=== PATIENT | male | born 1975 | race Caucasian/White ===

== ENCOUNTER 2018-09-09 03:20 | Emergency (ER) | payer OTHER ==
[~2018-09-09] VITALS: Ht 165.1 cm; Wt 76.8 kg
[2018-09-09 03:23] VITALS: BP 140/85
--- NOTE | 2018-09-09 03:23 | NUR ---
TO BED # 11 AMBULATORY, REPORT GIVEN TO PABLO MCKEON
--- NOTE | 2018-09-09 03:25 | NUR ---
CAME IN WITH C/O HIGH BP , COLD RT ARM , ANXIETY AND DEPRESSED STARTED 10 MINUTES AGO. PATIENT ALERT , AWAKE , ORIENTED , AMBULATORY, CALM.
--- NOTE | 2018-09-09 03:47 | NUR ---
Dr. Sibley evaluating patient at bedside.
[2018-09-09 04:00] VITALS: BP 140/85
== END 2018-09-09 04:00 | disposition home or self-care (01) ==
LOC: MED 03:20
DX: F41.9 Anxiety disorder, unspecified (principal); I10 Essential (primary) hypertension
CPT/HCPCS: 99283